=== PATIENT | female | born 1970 | race Caucasian/White ===

== ENCOUNTER 2021-12-20 21:51 | Inpatient (IN) | payer OTHER, MEDICAID ==
[~2021-12-20] VITALS: Ht 172.7 cm; Wt 113.4 kg
[~2021-12-20 21:51] MED LIST: ALDACTONE50 MG PO; ATIVAN0.5 MG PO; BENTYL 20 MG TA20 M1 PO; BLOOD PRESSURE MED; CELEXA10 MG PO; IBUPROFEN 800800 M1 PO; LACTULOSE10 GM/152 PO; LASIX 40 MG TAB40 M2 PO; PENICILLIN VK500 M1 PO; PRISTIQ50 MG PO; TRAMADOL 50 MG50 MG PO; WELLBUTRIN SR150 MG PO
[2021-12-20 22:13] VITALS: BP 142/98
[2021-12-21 00:31] LABS: CALCIUM 9.5 mg/dL (8.5-10.1); POTASSIUM 4.2 mmol/L (3.5-5.1)
[2021-12-21 00:36] LABS: ABSOLUTE EOSINOPHILS 0.2 thou/uL (0.0-0.7); ABSOLUTE MONOCYTES 0.4 thou/uL (0.0-1.2); ABSOLUTE NEUTROPHILS 2.7 thou/uL (1.6-8.1); BASOPHILS 1.1 %; EOSINOPHILS 5.5 %; HEMATOCRIT 37.5 % (37.0-47.0); HEMOGLOBIN 12.1 gm/dL (12.0-15.0); LYMPHOCYTES 23.6 %; MCH 27.4 pg (26.0-34.0); MCHC 32.3 g/dL (28.0-37.0); MCV 84.8 fL (80.0-100.0); MONOCYTES 9.5 %; MPV 8.7 fl. (7.2-11.1); NUCLEATED RBCS 0 /100WBC; PLATELET COUNT* 260 thou/uL (150-400); POLYS 60.3 %; RBC 4.42 mil/uL (4.20-5.00); RDW-CV 15.4 % (10.5-14.5); WBC 4.4 thou/uL (4.0-11.0)
[2021-12-21 00:42] LABS: INR 1.1; PROTIME 11.4 Seconds (9.20-11.50)
[2021-12-21 00:45] LABS: ALBUMIN 2.9 g/dL (3.4-5.0); MAGNESIUM 2.1 mg/dL (1.8-2.4); TOTAL BILIRUBIN 0.5 mg/dL (<0.1-1.0); TOTAL PROTEIN 7.3 g/dL (6.4-8.2)
[2021-12-21 05:09] VITALS: BP 119/78
[2021-12-21 08:19] LABS: AMP/METHAMP POSITIVE (Negative); BARBITURATES Negative (Negative); BENZODIAZEPINES Negative (Negative); COCAINE Negative (Negative); METHADONE Negative (Negative); OPIATES POSITIVE (Negative); PCP Negative (Negative); THC Negative (Negative)
[2021-12-21 08:50] LABS: URINE BILIRUBIN NEGATIVE (Negative); URINE BLOOD NEGATIVE (Negative); URINE CLARITY CLEAR; URINE COLOR YELLOW; URINE GLUCOSE-RANDOM NEGATIVE (Negative); URINE KETONES NEGATIVE (Negative); URINE LEUKOCYTES-REFLEX NEGATIVE (Negative); URINE NITRITE-REFLEX NEGATIVE (Negative); URINE PROTEIN NEGATIVE (Negative); URINE SPECIFIC GRAVITY <= 1.005 (1.005-1.030); URINE UROBILINOGEN 0.2 E.U./dl (0.2-1.0)
[2021-12-21 10:06] VITALS: BP 119/78
[2021-12-21 10:27] VITALS: BP 119/781
--- NOTE | 2021-12-21 16:28 | EKG ---
[place] [address] ELECTROCARDIOGRAM REPORT Name: DEANGELO CORDERO Room: [place] [address] ADM IN [facility]#: [id number] Admission: 12/21/21 Attend Phys: Dallas Bourgeois Discharge: Date of : 72 Date of Service: 12/20/212209 Report #: [id number] THIS REPORT FOR: //name// [facility] ED Test Date: 2021-12-20 Test Time: 22:10:03 Pat Name: DEANGELO CORDERO Department: Room: [facility] Gender: F Heel Nail Rasper: : 1970 Requested By: Keiko Paulson Order Number: [id number] MD: Brijesh Gomes Measurements Intervals [place] Rate: 117 P: 77 PA: 129 QRS: 70 QRSD: 102 T: 61 QT: 326 QTc: 455 Interpretive Statements Sinus tachycardia Baseline wander in lead(s) I,II,aVR No previous ECG available for comparison Electronically Signed On 12-21-2021 16:28:34 SUPERINTENDENT RECREATION by Brijesh Gomes [email or web address] <ELECTRONICALLY SIGNED> By: Brijesh Gomes MD, [facility] 12/21/21 1628 09 09 Brijesh Gomes MD, [facility] /EPI
[2021-12-21 18:48] VITALS: BP 113/52
[2021-12-21 20:00] VITALS: BP 92/52
[2021-12-22 04:00] VITALS: BP 99/60
[2021-12-22 04:10] LABS: HEMATOCRIT 34.3 % (37.0-47.0); HEMOGLOBIN 11.2 gm/dL (12.0-15.0); MCH 27.6 pg (26.0-34.0); MCHC 32.6 g/dL (28.0-37.0); MCV 84.7 fL (80.0-100.0); MPV 8.9 fl. (7.2-11.1); RBC 4.05 mil/uL (4.20-5.00); RDW-CV 15.4 % (10.5-14.5); WBC 2.8 thou/uL (4.0-11.0)
[2021-12-22 04:27] LABS: ALBUMIN 2.7 g/dL (3.4-5.0); CALCIUM 9.3 mg/dL (8.5-10.1); POTASSIUM 3.9 mmol/L (3.5-5.1); TOTAL BILIRUBIN 0.7 mg/dL (<0.1-1.0); TOTAL PROTEIN 6.7 g/dL (6.4-8.2)
[2021-12-22 05:07] LABS: GLYCOHEMOGLOBIN (HGB A1C) 6.8 % (4.8-5.6)
[2021-12-22 11:01] LABS: SOURCE ASCITES; TOTAL VOLUME 1400CC ml
[2021-12-22 11:02] LABS: CLARITY CLOUDY
[2021-12-22 12:00] LABS: BF POLYS 0 %; BODY FLUID BANDS 0 %
[2021-12-22 12:01] LABS: BF LYMPHOCYTES 97 %
[2021-12-22 12:03] LABS: BF RBC 26616 /mm3; BF WBC 1489 /mm3
[2021-12-22 12:05] LABS: BF MONOCYTES 3 %
[2021-12-23 03:58] LABS: HEMATOCRIT 36.2 % (37.0-47.0); HEMOGLOBIN 11.9 gm/dL (12.0-15.0); MCH 27.7 pg (26.0-34.0); MCHC 32.8 g/dL (28.0-37.0); MCV 84.7 fL (80.0-100.0); MPV 8.7 fl. (7.2-11.1); RBC 4.27 mil/uL (4.20-5.00); RDW-CV 15.2 % (10.5-14.5)
[2021-12-23 04:20] LABS: ALBUMIN 2.7 g/dL (3.4-5.0); CALCIUM 9.4 mg/dL (8.5-10.1); MAGNESIUM 2.2 mg/dL (1.8-2.4); POTASSIUM 3.7 mmol/L (3.5-5.1); TOTAL BILIRUBIN 0.6 mg/dL (<0.1-1.0); TOTAL PROTEIN 6.9 g/dL (6.4-8.2)
[2021-12-23 08:00] VITALS: BP 91/45
[2021-12-23 20:10] VITALS: BP 101/58
[2021-12-24 04:00] VITALS: BP 114/57
[2021-12-24 04:26] LABS: HEMOGLOBIN 11.9 gm/dL (12.0-15.0); MCHC 33.2 g/dL (28.0-37.0)
[2021-12-24 04:29] LABS: HEMATOCRIT 35.8 % (37.0-47.0); MCH 28.1 pg (26.0-34.0); MCV 84.4 fL (80.0-100.0); MPV 8.7 fl. (7.2-11.1); RBC 4.24 mil/uL (4.20-5.00); RDW-CV 14.9 % (10.5-14.5); WBC 3.2 thou/uL (4.0-11.0)
[2021-12-24 04:41] LABS: ALBUMIN 2.7 g/dL (3.4-5.0); CALCIUM 9.4 mg/dL (8.5-10.1); MAGNESIUM 2.1 mg/dL (1.8-2.4); POTASSIUM 3.8 mmol/L (3.5-5.1); TOTAL BILIRUBIN 0.5 mg/dL (<0.1-1.0); TOTAL PROTEIN 6.8 g/dL (6.4-8.2)
[2021-12-24] MEDS ORDERED: NEXIUM40 MG PO (07:56)
[2021-12-24 08:00] VITALS: BP 122/68
[2021-12-24 14:53] VITALS: BP 122/68
--- NOTE | 2021-12-24 15:08 | PATH ---
[address] [address] PATHOLOGY RPT PROCEDURE Name: DEANGELO CORDERO Room: [address] IN [facility]#: [id number] Admission: 12/21/21 Date of : 72 Discharge: Report #: [id number] Path Case #: [id number] Note [facility] Accession Number: [id number] TESTS RESULT FLAG UNITS REF RANGE LAB Clinician Provided Cytology Information No. of containers..01 Other (Miscellaneous) Source: ASCITES DIAGNOSIS: 02 ASCITES NEGATIVE FOR MALIGNANT CELLS. FEW MESOTHELIAL CELLS AND MODERATE, PREDOMINANTLY CHRONIC INFLAMMATION PRESENT. THIS INTERPRETATION INCLUDES EVALUATION OF A CELL BLOCK. Signed out by: 02 Rafael Patino MD, Pathologist NPI- [id number] Performed by: 01 Ashley Carrasco, Electronic Court Recorder ([facility]) Gross description: 01 20ML, KAVEH SCHNEIDER /ZEV 12/23/2021 1633 Local FLAG LEGEND: L-Low Normal,H-High Normal,LL-Alert Low,HH-Alert High <-Panic Low,>-Panic High,A-Abnormal,AA-Critical Abnormal Performed at: [address] [place] [address] Cristhian Sandoval MD, [address] [place] [address] [address], [place] [address] Rafael Patino MD, Specimen Comment: A courtesy copy of this report has been sent to [phone] Specimen Comment: [phone] Specimen Comment: Report sent to Performed at: [address], [place], [place] [id number] MD Cristhian Sandoval MD Phone: [phone]
== END 2021-12-24 16:00 | disposition home or self-care (01) | DRG 433 ==
LOC: M.ERS 21:51 → M.TBA-ER 12-21 05:09 → M.ORTHSURG 12-21 18:16
PROVIDERS: Emergency Medicine; Internal Medicine; ADMIT Internal Medicine; ATTEND Internal Medicine
PROC: 0W9G3ZZ Drainage of Peritoneal Cavity, Percutaneous Approach (ICD-10-PCS; principal; 2021-12-22)
PROC: 0D758ZZ Dilation of Esophagus, Via Natural or Artificial Opening Endoscopic (ICD-10-PCS; 2021-12-23)
DX: K74.60 Unspecified cirrhosis of liver (principal); R18.8 Other ascites; R65.10 Systemic inflammatory response syndrome (SIRS) of non-infectious origin without acute organ dysfunction; B17.10 Acute hepatitis C without hepatic coma; Z20.822 Contact with and (suspected) exposure to COVID-19; E11.65 Type 2 diabetes mellitus with hyperglycemia; K72.10 Chronic hepatic failure without coma; E88.09 Other disorders of plasma-protein metabolism, not elsewhere classified; I10 Essential (primary) hypertension; F17.210 Nicotine dependence, cigarettes, uncomplicated; K21.00 Gastro-esophageal reflux disease with esophagitis, without bleeding; R16.1 Splenomegaly, not elsewhere classified; K76.0 Fatty (change of) liver, not elsewhere classified; K44.9 Diaphragmatic hernia without obstruction or gangrene; R82.5 Elevated urine levels of drugs, medicaments and biological substances; K22.2 Esophageal obstruction; E66.9 Obesity, unspecified; F41.9 Anxiety disorder, unspecified; F32.A Depression, unspecified; B18.2 Chronic viral hepatitis C; K21.9 Gastro-esophageal reflux disease without esophagitis; Z79.84 Long term (current) use of oral hypoglycemic drugs; Z79.899 Other long term (current) drug therapy; Z68.38 Body mass index [BMI] 38.0-38.9, adult; Z90.49 Acquired absence of other specified parts of digestive tract; Z98.891 History of uterine scar from previous surgery